=== PATIENT | female | born 1970 | race Asian ===

== ENCOUNTER 2018-10-22 23:12 | Inpatient (IN) | payer OTHER ==
[~2018-10-22] VITALS: Ht 154.9 cm; Wt 71.4 kg
[2018-10-23] MEDS ORDERED: morphine 2 MG INJ IV STA (00:39)
[2018-10-23] MEDS ORDERED: SODIUM CHLORIDE 0.9% 1L BAG IV* STA (00:39)
[2018-10-23] MEDS ORDERED: ONDANSETRON 4 MG INJ IV STA (00:39)
[2018-10-23] MEDS ORDERED: PIPER-TAZO 3.375 GM IV (PMX) 100 ML IVPB STA (00:39)
[2018-10-23] MEDS ORDERED: VANCOMYCIN 1 GM (PMX) 250 ML IVPB ONE (01:00)
[2018-10-23] MEDS ORDERED: morphine 2 MG INJ IV PRN (02:00)
[2018-10-23] MEDS ORDERED: HYDROCODONE/APAP (5/325) TAB PO PRN (02:00)
[2018-10-23] MEDS ORDERED: NACL 0.9% 3 ML SYG IV SCH (02:00)
[2018-10-23] MEDS ORDERED: VANCOMYCIN IV PER PHARMACY XX SCH (02:00)
--- NOTE | 2018-10-23 02:18 | HP ---
Date/Time of Note Date/Time of Note DATE: 10/23/18 TIME: 02:17 Assessment/Plan VTE Prophylaxis Pharmacological prophylaxis: other Lines/Catheters IV Catheter Type (from Nrs): Saline Lock Assessment/Plan Hospital Course Objective Physical exam General: Patient is laying in bed and answers questions appropriately Mentation: Patient is alert and oriented 4, Head: Normocephalic atraumatic Eyes: EOMI, pupils reactive to light Neck: Supple, nontender, midline Respiratory: Clear to auscultation bilaterally Cardiovascular: regular rate, no obvious murmurs Gastrointestinal: non-tender to palpation, bowel sounds heard. Neurological: Moves all extremities spontaneously Skin: Left breast surgical site with very mild to minimal erythema, drain site palpated, tender, draining fluid Assessment and plan Left breast cellulitis versus abscess -Broad-spectrum IV antibiotic -Dr. Ramon, has been called by the ED, however as of the time of dictation s till awaiting callback, if unable to contact, his office will need to be contacted so he can see the patient in the a.m. -Wound culture -Cultures pending LCIS versus DCIS -Reason for most recent surgery, follow-up with Dr. Ramon. Anemia -Mild, monitor Disposition -Continue IV antibiotics, await general surgeon recommendations. Result Diagram: 10/23/18 0020 10/23/18 0020 Results 24hrs Laboratory Tests Test 10/23/18 00:20 10/23/18 00:27 10/23/18 01:02 White Blood Count 8.9 Red Blood Count 3.54 L Hemoglobin 11.0 L Hematocrit 32.9 L Mean Corpuscular Volume 92.9 Mean Corpuscular Hemoglobin 31.1 Mean Corpuscular Hemoglobin Concent 33.4 Red Cell Distribution Width 11.8 Platelet Count 311 Mean Platelet Volume 9.6 Immature Granulocytes % 0.200 Neutrophils % 65.1 Lymphocytes % 17.9 Monocytes % 8.6 Eosinophils % 7.8 H Basophils % 0.4 Nucleated Red Blood Cells % 0.0 Immature Granulocytes # 0.020 Neutrophils # 5.8 Lymphocytes # 1.6 Monocytes # 0.8 Eosinophils # 0.7 H Basophils # 0.0 Nucleated Red Blood Cells # 0.0 Prothrombin Time 11.9 Prothrombin Time Ratio 0.9 INR International Normalized Ratio 0.87 Activated Partial Thromboplast Time 34.0 Urine Color YELLOW Urine Clarity CLEAR Urine pH 5.0 Urine Specific [place] 1.011 Urine Ketones TRACE A Urine Nitrite NEGATIVE Urine Bilirubin NEGATIVE Urine Urobilinogen NEGATIVE Urine Leukocyte Esterase TRACE A Urine Microscopic RBC 2 Urine Microscopic WBC 5 Urine Bacteria FEW A Urine Mucus FEW A Urine Hemoglobin 2+ H Urine Glucose NEGATIVE Urine Total Protein NEGATIVE Sodium Level 143 Potassium Level 3.6 Chloride Level 108 Carbon Dioxide Level 29 Anion Gap 6 Blood Urea Nitrogen 11 Creatinine 0.58 Est Glomerular Filtrat Rate mL/min > 60 Glucose Level 114 Calcium Level 9.5 Total Bilirubin 0.1 L Direct Bilirubin 0.00 Indirect Bilirubin 0.1 Aspartate Amino Transf (AST/SGOT) 29 Alanine Aminotransferase (ALT/SGPT) 27 Alkaline Phosphatase 60 Troponin I < 0.012 Total Protein 7.8 Albumin 4.1 Globulin 3.70 H Albumin/Globulin Ratio 1.10 POC Beta HCG, Qualitative NEGATIVE POC Venous Lactate 1.0 HPI/ROS Admit Date/Time Admit Date/Time Hx of Present Illness Patient is a [place] female who presents to [facility] with complaints of left breast drainage. Patient recently had a surgical procedure to remove a questionable breast mass on her left breast by Dr. Ramon on October 11. Patient subsequently had her drain removed approximately 3 days ago and since then has had left breast pain as well as drainage from site that has gotten worse. Patient's left breast begin to drain copiously tonight and subsequently patient came into the ED, patient complains of left breast site pain but otherwise feels within normal limits, patient denies chest pain, shortness of breath, abdominal pain, nausea, vomiting, leg pain. PMH/Family/Social Past Medical History Medications Current Medications Vancomycin HCl 250 ml @ 125 mls/hr ONCE ONCE IVPB ; Start 10/23/18 at 01:00; Stop 10/23/18 at 02:59 Piperacillin Sod/ Tazobactam Sod 100 ml @ 200 mls/hr Q6 IVPB ; Start 10/23/18 at 06:00 Vancomycin HCl (Vanco Iv Per Pharmacy) VANCOMYCIN PER PHARMACY PER PROTOCOL XX ; Start 10/23/18 at 02:00 IV Flush (NS 3 ml) 3 ml PER PROTOCOL IV ; Start 10/23/18 at 02:00 Acetaminophen (Tylenol Tab) 650 mg Q6H PRN PO .PAIN 1-3 OR TEMP; Start 10/23/18 at 02:00 Acetaminophen/ Hydrocodone Bitart ([place] (5/325)) 1 tab Q6H PRN PO .PAIN 4-6; Start 10/23/18 at 02:00 Morphine Sulfate (morphine) 2 mg Q4H PRN IV .PAIN 7-10; Start 10/23/18 at 02:00 Coded Allergies: No Known Drug Allergies (Unverified Allergy, Unknown, 10/11/18) Social History Smoking Status: Never smoker Exam/Review of Systems Vital Signs Vitals Vital Signs Date Temp Pulse Resp B/P (MAP) Pulse Ox O2 O2 Flow FiO2 Time Delivery Rate 10/23/18 98.8 86 13 113/78 100 Room Air 01:44 (90) ALEX SANTIAGO Oct 23, 2018 02:18
--- NOTE | 2018-10-23 02:27 | ERD ---
ER Documentation Chief Complaint Chief Complaint p L breast lupectomy 10/11/17; incision w pus today. +fever Fri HPI This is a very pleasant 48-year female status post left breast lumpectomy on 11 October. She had a J-tube pulled a few days ago. Since then she has noticed increased fullness erythema induration and pain in the left breast. Also has chills but no fever. No nausea no vomiting. No other current complaints ROS All systems reviewed and are negative except as per history of present illness. Allergies Allergies: Coded Allergies: No Known Drug Allergies (Unverified Allergy, Unknown, 10/11/18) PMhx/Soc History of Surgery: Yes (left breast lumpectomy, partial hysterectomy) Anesthesia Reaction: No Hx Neurological Disorder: No Hx Respiratory Disorders: No Hx Cardiac Disorders: No Hx Psychiatric Problems: No Hx Miscellaneous Medical Probl: No Hx Alcohol Use: Yes (socially) Hx Substance Use: No Hx Tobacco Use: No Smoking Status: Never smoker Physical Exam Vitals Vital Signs Date Temp Pulse Resp B/P (MAP) Pulse Ox O2 O2 Flow FiO2 Time Delivery Rate 10/23/18 98.8 86 13 113/78 100 Room Air 01:44 (90) 10/23/18 98.8 89 16 127/78 100 Room Air 00:42 (94) 10/23/18 98.8 80 16 151/72 100 Room Air 00:07 (98) 10/22/18 98.8 99 16 151/72 100 23:16 (98) Physical Exam Const: No acute distress Head: Atraumatic Eyes: Normal Conjunctiva ENT: Normal External Ears, Nose and Mouth. Neck: Full range of motion. No meningismus. Resp: Clear to auscultation bilaterally Cardio: Regular rate and rhythm, no murmurs Abd: Soft, non tender, non distended. Normal bowel sounds Skin: Left breast with 5 x 5 circumferential area of erythema induration. 1 cm central fluctuance noted on deep palpation. Back: No midline or flank tenderness Ext: No cyanosis, or edema Neur: Awake and alert Psych: Normal Mood and Affect Result Diagram: 10/23/18 0020 10/23/18 0020 Results 24 hrs Laboratory Tests Test 10/23/18 00:20 10/23/18 00:27 10/23/18 01:02 White Blood Count 8.9 10^3/ul Red Blood Count 3.54 10^6/ul Hemoglobin 11.0 g/dl Hematocrit 32.9 % Mean Corpuscular Volume 92.9 fl Mean Corpuscular Hemoglobin 31.1 pg Mean Corpuscular 33.4 g/dl Hemoglobin Concent Red Cell Distribution Width 11.8 % Platelet Count 311 10^3/UL Mean Platelet Volume 9.6 fl Immature Granulocytes % 0.200 % Neutrophils % 65.1 % Lymphocytes % 17.9 % Monocytes % 8.6 % Eosinophils % 7.8 % Basophils % 0.4 % Nucleated Red Blood Cells % 0.0 /100WBC Immature Granulocytes # 0.020 10^3/ul Neutrophils # 5.8 10^3/ul Lymphocytes # 1.6 10^3/ul Monocytes # 0.8 10^3/ul Eosinophils # 0.7 10^3/ul Basophils # 0.0 10^3/ul Nucleated Red Blood Cells # 0.0 10^3/ul Prothrombin Time 11.9 Sec Prothrombin Time Ratio 0.9 INR International 0.87 Normalized Ratio Activated Partial Thromboplast 34.0 Sec Time Urine Color YELLOW Urine Clarity CLEAR Urine pH 5.0 Urine Specific [place] 1.011 Urine Ketones TRACE mg/dL Urine Nitrite NEGATIVE mg/dL Urine Bilirubin NEGATIVE mg/dL Urine Urobilinogen NEGATIVE mg/dL Urine Leukocyte Esterase TRACE Cheryl/ul Urine Microscopic RBC 2 /HPF Urine Microscopic WBC 5 /HPF Urine Bacteria FEW /HPF Urine Mucus FEW /HPF Urine Hemoglobin 2+ mg/dL Urine Glucose NEGATIVE mg/dL Urine Total Protein NEGATIVE mg/dl Sodium Level 143 mmol/L Potassium Level 3.6 mmol/L Chloride Level 108 mmol/L Carbon Dioxide Level 29 mmol/L Anion Gap 6 Blood Urea Nitrogen 11 mg/dl Creatinine 0.58 mg/dl Est Glomerular Filtrat > 60 mL/min Rate mL/min Glucose Level 114 mg/dl Calcium Level 9.5 mg/dl Total Bilirubin 0.1 mg/dl Direct Bilirubin 0.00 mg/dl Indirect Bilirubin 0.1 mg/dl Aspartate Amino Transf (AST/SGOT) 29 IU/L Alanine 27 IU/L Aminotransferase (ALT/SGPT) Alkaline Phosphatase 60 IU/L Troponin I < 0.012 ng/ml Total Protein 7.8 g/dl Albumin 4.1 g/dl Globulin 3.70 g/dl Albumin/Globulin Ratio 1.10 POC Beta HCG, Qualitative NEGATIVE POC Venous Lactate 1.0 mmol/L Current Medications Medications Dose Sig/Herson Start Time Status Last (Trade) Ordered Route PRN Stop Time Admin Dose Reason Admin Sodium 2,140 ml BOLUS OVER 2 10/23/18 DC 10/23/18 Chloride HOURS STAT 00:39 01:05 (NS) IV* 10/23/18 00:43 Vancomycin 250 ml @ ONCE ONCE 10/23/18 HCl 125 mls/hr IVPB 01:00 10/23/18 02:59 Piperacillin 100 ml @ ONCE STAT 10/23/18 DC 10/23/18 Sod/ 200 mls/hr IVPB 00:39 01:05 Tazobactam 10/23/18 01:08 Sod Morphine 2 mg ONCE STAT 10/23/18 DC 10/23/18 Sulfate IV 00:39 01:05 (morphine) 10/23/18 00:43 Ondansetron 4 mg ONCE STAT 10/23/18 DC 10/23/18 HCl (Zofran IV 00:39 01:05 Inj) 10/23/18 00:43 Piperacillin 100 ml @ Q6 IVPB 10/23/18 Sod/ 200 mls/hr 06:00 Tazobactam Sod Vancomycin VANCOMYCIN PER 10/23/18 HCl (Vanco PER PHARMACY PROTOCOL XX 02:00 Iv Per Pharmacy) IV Flush 3 ml PER 10/23/18 (NS 3 ml) PROTOCOL IV 02:00 650 mg Q6H PRN 10/23/18 Acetaminophen PO .PAIN 1-3 02:00 (Tylenol OR TEMP Tab) 1 tab Q6H PRN 10/23/18 Acetaminophen PO .PAIN 4-6 02:00 / Hydrocodone Bitart ([place] (5/325)) Morphine 2 mg Q4H PRN 10/23/18 Sulfate IV .PAIN 02:00 (morphine) 7-10 Procedures/MDM Medical decision makin-year female with left breast cellulitis and possible early abscess. Start on antibiotics. Will be admitted to hospitalist. Dr. Chi was consulted as he did the original surgery. Departure Diagnosis: Primary Impression: Postoperative complication Surgical complication system/body Area: skin Surgical complication type: other Qualified Codes: L76.82 - Other postprocedural complications of skin and subcutaneous tissue Condition: Serious JUSTINA SANFORD Oct 23, 2018 02:27
[2018-10-23] MEDS ORDERED: MULTI PO (03:21)
[2018-10-23] MEDS ORDERED: ASCO500C7 PO (03:21)
[2018-10-23] MEDS ORDERED: CALC-134 PO (03:21)
[2018-10-23 05:00] VITALS: BP 113/69; PULSE 85; RESP 16
[2018-10-23] MEDS: PIPER-TAZO 3.375 GM IV (PMX) 100 ML IVPB SCH ×4 (06:03→23:40)
[2018-10-23] MEDS: VANCOMYCIN 1 GM 250 ML IVPB SCH ×2 (07:52→20:26)
[2018-10-23 08:00] VITALS: BP 95/62; PULSE 78; RESP 18
--- NOTE | 2018-10-23 12:06 | PN ---
Date/Time of Note Date/Time of Note DATE: 10/23/18 TIME: 12:05 Assessment/Plan VTE Prophylaxis SCD contraindicated: low risk/ambulating Pharmacological prophylaxis: NA/contraindicated Pharm contraindication: low risk/ambulating Lines/Catheters IV Catheter Type (from Nrsg): Saline Lock Assessment/Plan Hospital Course A/P 1. Left breast infection, possible seroma or abscess, stable cont antibiotics. reevaluate later this week. 2. Recent breast mass excision 2 weeks ago. MIREILLE removed 3 days ago. 3. Anemia S: 10/23 Events noted. The discharge was light yellow in color with occasional blood-tinged & sour smell noted O: Vss PE No pallor adenopathy Regular Clear Benign No edema Result Diagram: 10/23/1860510/23/18605 Results 24hrs Laboratory Tests Test 10/23/18 00:20 10/23/18 00:27 10/23/18 01:02 10/23/18 04:22 White Blood Count 8.9 Red Blood Count 3.54 L Hemoglobin 11.0 L Hematocrit 32.9 L Mean Corpuscular 92.9 Volume Mean Corpuscular 31.1 Hemoglobin Mean Corpuscular 33.4 Hemoglobin Concent Red Cell 11.8 Distribution Width Platelet Count 311 Mean Platelet Volume 9.6 Immature 0.200 Granulocytes % Neutrophils % 65.1 Lymphocytes % 17.9 Monocytes % 8.6 Eosinophils % 7.8 H Basophils % 0.4 Nucleated Red Blood 0.0 Cells % Immature 0.020 Granulocytes # Neutrophils # 5.8 Lymphocytes # 1.6 Monocytes # 0.8 Eosinophils # 0.7 H Basophils # 0.0 Nucleated Red Blood 0.0 Cells # Prothrombin Time 11.9 Prothrombin Time 0.9 Ratio INR International 0.87 Normalized Ratio Activated 34.0 Partial Thromboplast Time Urine Color YELLOW Urine Clarity CLEAR Urine pH 5.0 Urine Specific 1.011 [place] Urine Ketones TRACE A Urine Nitrite NEGATIVE Urine Bilirubin NEGATIVE Urine Urobilinogen NEGATIVE Urine Leukocyte TRACE A Esterase Urine Microscopic 2 RBC Urine Microscopic 5 WBC Urine Bacteria FEW A Urine Mucus FEW A Urine Hemoglobin 2+ H Urine Glucose NEGATIVE Urine Total Protein NEGATIVE Sodium Level 143 Potassium Level 3.6 Chloride Level 108 Carbon Dioxide Level 29 Anion Gap 6 Blood Urea Nitrogen 11 Creatinine 0.58 Est Glomerular > 60 Filtrat Rate mL/min Glucose Level 114 Calcium Level 9.5 Total Bilirubin 0.1 L Direct Bilirubin 0.00 Indirect Bilirubin 0.1 Aspartate Amino 29 Transf (AST/SGOT) Alanine 27 Aminotransferase (AL T/SGPT) Alkaline Phosphatase 60 Troponin I < 0.012 Total Protein 7.8 Albumin 4.1 Globulin 3.70 H Albumin/Globulin 1.10 Ratio POC Beta HCG, NEGATIVE Qualitative POC Venous Lactate 1.0 0.9 Test 10/23/18 06:06 White Blood Count 6.1 # Red Blood Count 3.08 L Hemoglobin 9.4 L Hematocrit 28.6 L Mean Corpuscular 92.9 Volume Mean Corpuscular 30.5 Hemoglobin Mean Corpuscular 32.9 Hemoglobin Concent Red Cell 11.9 Distribution Width Platelet Count 251 Mean Platelet Volume 9.0 Immature 0.300 Granulocytes % Neutrophils % 56.4 Lymphocytes % 26.0 Monocytes % 8.9 Eosinophils % 7.9 H Basophils % 0.5 Nucleated Red Blood 0.0 Cells % Immature 0.020 Granulocytes # Neutrophils # 3.4 Lymphocytes # 1.6 Monocytes # 0.5 Eosinophils # 0.5 Basophils # 0.0 Nucleated Red Blood 0.0 Cells # Sodium Level 145 H Potassium Level 4.0 Chloride Level 111 H Carbon Dioxide Level 28 Anion Gap 6 Blood Urea Nitrogen 7 Creatinine 0.56 Est Glomerular > 60 Filtrat Rate mL/min Glucose Level 101 Lactic Acid Level 0.7 Calcium Level 8.5 Magnesium Level 2.2 Total Bilirubin 0.2 Direct Bilirubin 0.00 Indirect Bilirubin 0.2 Aspartate Amino 21 Transf (AST/SGOT) Alanine 27 Aminotransferase (AL T/SGPT) Alkaline Phosphatase 44 Total Protein 6.1 # Albumin 3.2 L Globulin 2.90 Albumin/Globulin 1.10 Ratio Exam/Review of Systems Exam Vitals Vital Signs Date Temp Pulse Resp B/P (MAP) Pulse Ox O2 O2 Flow FiO2 Time Delivery Rate 10/23/18 98.2 78 18 95/62 (73) 99 Room Air 08:00 Results Results 24hrs Laboratory Tests Test 10/23/18 00:20 10/23/18 00:27 10/23/18 01:02 10/23/18 04:22 White Blood Count 8.9 Red Blood Count 3.54 L Hemoglobin 11.0 L Hematocrit 32.9 L Mean Corpuscular 92.9 Volume Mean Corpuscular 31.1 Hemoglobin Mean Corpuscular 33.4 Hemoglobin Concent Red Cell 11.8 Distribution Width Platelet Count 311 Mean Platelet Volume 9.6 Immature 0.200 Granulocytes % Neutrophils % 65.1 Lymphocytes % 17.9 Monocytes % 8.6 Eosinophils % 7.8 H Basophils % 0.4 Nucleated Red Blood 0.0 Cells % Immature 0.020 Granulocytes # Neutrophils # 5.8 Lymphocytes # 1.6 Monocytes # 0.8 Eosinophils # 0.7 H Basophils # 0.0 Nucleated Red Blood 0.0 Cells # Prothrombin Time 11.9 Prothrombin Time 0.9 Ratio INR International 0.87 Normalized Ratio Activated 34.0 Partial Thromboplast Time Urine Color YELLOW Urine Clarity CLEAR Urine pH 5.0 Urine Specific 1.011 [place] Urine Ketones TRACE A Urine Nitrite NEGATIVE Urine Bilirubin NEGATIVE Urine Urobilinogen NEGATIVE Urine Leukocyte TRACE A Esterase Urine Microscopic 2 RBC Urine Microscopic 5 WBC Urine Bacteria FEW A Urine Mucus FEW A Urine Hemoglobin 2+ H Urine Glucose NEGATIVE Urine Total Protein NEGATIVE Sodium Level 143 Potassium Level 3.6 Chloride Level 108 Carbon Dioxide Level 29 Anion Gap 6 Blood Urea Nitrogen 11 Creatinine 0.58 Est Glomerular > 60 Filtrat Rate mL/min Glucose Level 114 Calcium Level 9.5 Total Bilirubin 0.1 L Direct Bilirubin 0.00 Indirect Bilirubin 0.1 Aspartate Amino 29 Transf (AST/SGOT) Alanine 27 Aminotransferase (AL T/SGPT) Alkaline Phosphatase 60 Troponin I < 0.012 Total Protein 7.8 Albumin 4.1 Globulin 3.70 H Albumin/Globulin 1.10 Ratio POC Beta HCG, NEGATIVE Qualitative POC Venous Lactate 1.0 0.9 Test 10/23/18 06:06 White Blood Count 6.1 # Red Blood Count 3.08 L Hemoglobin 9.4 L Hematocrit 28.6 L Mean Corpuscular 92.9 Volume Mean Corpuscular 30.5 Hemoglobin Mean Corpuscular 32.9 Hemoglobin Concent Red Cell 11.9 Distribution Width Platelet Count 251 Mean Platelet Volume 9.0 Immature 0.300 Granulocytes % Neutrophils % 56.4 Lymphocytes % 26.0 Monocytes % 8.9 Eosinophils % 7.9 H Basophils % 0.5 Nucleated Red Blood 0.0 Cells % Immature 0.020 Granulocytes # Neutrophils # 3.4 Lymphocytes # 1.6 Monocytes # 0.5 Eosinophils # 0.5 Basophils # 0.0 Nucleated Red Blood 0.0 Cells # Sodium Level 145 H Potassium Level 4.0 Chloride Level 111 H Carbon Dioxide Level 28 Anion Gap 6 Blood Urea Nitrogen 7 Creatinine 0.56 Est Glomerular > 60 Filtrat Rate mL/min Glucose Level 101 Lactic Acid Level 0.7 Calcium Level 8.5 Magnesium Level 2.2 Total Bilirubin 0.2 Direct Bilirubin 0.00 Indirect Bilirubin 0.2 Aspartate Amino 21 Transf (AST/SGOT) Alanine 27 Aminotransferase (AL T/SGPT) Alkaline Phosphatase 44 Total Protein 6.1 # Albumin 3.2 L Globulin 2.90 Albumin/Globulin 1.10 Ratio Medications Medication Current Medications Piperacillin Sod/ Tazobactam Sod 100 ml @ 200 mls/hr Q6 IVPB Last administered on 10/23/18at 06:03; Admin Dose 200 MLS/HR; Start 10/23/18 at 06:00 Vancomycin HCl (Vanco Iv Per Pharmacy) VANCOMYCIN PER PHARMACY PER PROTOCOL XX ; Start 10/23/18 at 02:00 IV Flush (NS 3 ml) 3 ml PER PROTOCOL IV ; Start 10/23/18 at 02:00 Acetaminophen (Tylenol Tab) 650 mg Q6H PRN PO .PAIN 1-3 OR TEMP; Start 10/23/18 at 02:00 Acetaminophen/ Hydrocodone Bitart ([place] (5/325)) 1 tab Q6H PRN PO .PAIN 4-6; Start 10/23/18 at 02:00 Morphine Sulfate (morphine) 2 mg Q4H PRN IV .PAIN 7-10; Start 10/23/18 at 02:00 Vancomycin HCl 250 ml @ 125 mls/hr Q12H IVPB Last administered on 10/23/18at 07:52; Admin Dose 125 MLS/HR; Start 10/23/18 at 08:00 BILL HADDAD MD Oct 23, 2018 12:06
[2018-10-23 15:54] VITALS: BP 111/64; PULSE 85; RESP 18
[2018-10-23] MEDS ORDERED: GUAIFENESIN/DM 5ML CUP PO PRN (16:00)
--- NOTE | 2018-10-23 16:51 | CONS ---
DATE OF ADMISSION: 10/23/2018 DATE OF CONSULTATION: 10/23/2018 TYPE OF CONSULTATION: Surgical. REQUESTING PHYSICIAN: Alex Adrian MD REASON FOR CONSULTATION: Evaluate the left breast for possible abscess and cellulitis. Thank you, Dr. Adrian and Dr. Goins for consultation. 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 The patient was discharged without any complication home with the MIREILLE drain and apparently on Monday10/19/2018, the MIREILLE drain was removed in the office. The patient states that since then she has been feeling pain here and there in the muscles and also increase in the size of the breast a little bit and continued drainage from the site of the removal of the drain and some chills, no fever and has noticed slight redness of the color at the site of the operation, so she comes to the emergency room last night for evaluation. At that time, she was found to have temperature 99.8 and examination of the emergency room physician, there was cellulitis, some induration and some tenderness of the left breast, so the patient with the impression of cellulitis and possible abscess formation was admitted and was started on antibiotics, Zosyn and vancomycin. Culture was taken from discharge fluid. Now today, I see the patient in consultation. Actually the consultation is for Dr. Stephenson and I am covering Dr. Stephenson' service, so I see the patient. PAST MEDICAL HISTORY: Unremarkable. REVIEW OF SYSTEMS: Unremarkable. ALLERGIES: NOT KNOWN. MEDICATIONS: Please refer to reconciliation list. PHYSICAL EXAMINATION: GENERAL: The patient is awake, alert, oriented x3. VITAL SIGNS: Today, temperature maximum 98.8, heart rate 82, respirations 16, blood pressure 115/75, saturation 96% to 100% on room air. HEART: Regular. LUNGS: Clear. ABDOMEN: Soft. CHEST AND BREASTS: Right breast is normal. Left breast is slightly swollen. Scar of the recent operation is nicely healed. There is some slight amount of drainage of fluid yellowish from the site of removal of the Kapil-Pantoja drain on the lateral side of the left breast. Also around the scar area, there is a little bit of erythema and some tenderness. It is not extensive; therefore one can say mild degree of cellulitis and induration of subcutaneous tissue due to probably infection involving the site of the cavity of the recent operation. LABORATORY DATA: At the time of admission last night, WBC was 8900 with 65% neutrophils which is normal range, hemoglobin 11, hematocrit 32.9. Today morning at 7:00, WBC 6100, hemoglobin dropped slightly to 9.4, hematocrit 28.6. Later on, ESR is 50 which is elevated. Chemistry is almost within normal limits. The C-reactive protein is 3.7 which is elevated. DIAGNOSTIC DATA: Chest x-ray: No evidence for active cardiopulmonary disease. Ultrasound which was done today was read as follows: Small simple appearing fluid collection at 1 o'clock and heterogenous probable collection at 2 to 3 o'clock position which could represent a more complex collection. Breast masses are not excluded with this examination and this was not intended to be a complete breast ultrasound or screening examination for cancer. SUGGESTION AND PLAN: I agree with antibiotic at this time, so continue Zosyn and vancomycin, pending the culture result then make a decision for changing the antibiotic as needed. Also, continue for a couple of days. If all the symptoms disappear, we will probably continue IV until end of the week and the patient may be discharged with oral antibiotic. If the sign and symptom does not improve that much, then maybe on or Monday we will proceed with incision and drainage of the cavity and irrigation and washing of the cavity of recent partial mastectomy. I discussed the case with Dr. Stephenson. We will take a look at the patient tomorrow together and then further decision will be made. Dictated By: TOÑO LONG MD PS/NTS Conf#: [id number] DID#: [id number] CC: ALEX ADRIAN MD; CHOCO STEPHENSON MD;*EndCC* MTDD
[2018-10-23 19:55] VITALS: BP 110/65; PULSE 88; RESP 18
[2018-10-23] MEDS: LACTOBACILLUS RHAMNOSUS CAP PO SCH (20:26)
[2018-10-24] MEDS: HYDROCODONE/APAP (10/325) TAB PO PRN ×2 (04:35→23:23)
[2018-10-24] MEDS: PIPER-TAZO 3.375 GM IV (PMX) 100 ML IVPB SCH ×4 (05:43→23:23)
[2018-10-24] MEDS: VANCOMYCIN 1 GM 250 ML IVPB SCH (08:46)
[2018-10-24] MEDS: LACTOBACILLUS RHAMNOSUS CAP PO SCH ×2 (08:46→20:24)
[2018-10-24] MEDS: ENOXAPARIN 40 MG/0.4 ML SYG SC SCH (08:49)
[2018-10-24 08:52] VITALS: BP 104/67; PULSE 93; RESP 18
[2018-10-24] MEDS: ACETAMINOPHEN 325 MG TAB PO PRN ×2 (11:34→17:44)
[2018-10-24] MEDS: VANCOMYCIN HCL 1.25 GM in SOD CHLORIDE 0.9% 250 ML IVPB SCH (18:50)
[2018-10-24 20:30] VITALS: BP 118/59; PULSE 76; RESP 18
[2018-10-24] MEDS ORDERED: morphine LIQ (10 MG/5 ML) CUP PO PRN (23:00)
[2018-10-25 02:51] VITALS: BP 98/62; PULSE 65; RESP 19
[2018-10-25] MEDS: PIPER-TAZO 3.375 GM IV (PMX) 100 ML IVPB SCH ×3 (05:03→17:11)
[2018-10-25] MEDS: VANCOMYCIN HCL 1.25 GM in SOD CHLORIDE 0.9% 250 ML IVPB SCH ×2 (05:35→18:01)
[2018-10-25 07:26] VITALS: BP 107/67; PULSE 74; RESP 18
--- NOTE | 2018-10-25 07:32 | PN ---
DATE: 10/24/2018 SUBJECTIVE: Feels better than yesterday and the day before. No nausea, no vomiting, no fever, no chills. OBJECTIVE: VITAL SIGNS: Temperature today 98.8, heart rate fluctuating between 78 and 90, respirations 15, 13 and 16, blood pressure 115/78, saturation 100%. LABORATORY DATA: WBC today is 4100 with 41% neutrophils. Hemoglobin low but stable at 9.5 x 28.9. Chemistry: Sodium, potassium, BUN, creatinine normal. Thyroid is normal. Albumin 3.2 and total protein 5.9. wound culture which was from the drainage from the site of the exit of J.P.Draine has grown Staf aureous _2+. Further specification is pending. Blood culture negative so far. HEART: Regular. LUNGS: Clear. BREASTS: Erythema and cellulitis of the left breast is about 20% to 30% decreased comparing to yesterday. Still there is mild tenderness around the scar of the previous operation from the site of the removal of the drain. Still wound is draining most probably whether it is in the cavity of the mastectomy is getting drainage through this tract that was created by placement of Kapil- Pantoja drain. PLAN: Discuss with Dr. Stephenson. Will continue antibiotics and will observe the patient and will evaluate the patient. If by Monday is much, much better then will continue, otherwise most probably is not, we are going to proceed with opening the wound and irrigating the wound and put a Mason drain and leaving it in the wound cavity. Dictated By: TOÑO LONG MD PS/NTS Conf#: [id number] DID#: [id number] CC: ALEX SANTIAGO MD;*EndCC* MTDD
[2018-10-25] MEDS: LACTOBACILLUS RHAMNOSUS CAP PO SCH ×2 (08:41→21:45)
[2018-10-25] MEDS: HYDROCODONE/APAP (10/325) TAB PO PRN ×2 (08:42→17:16)
[2018-10-25] MEDS: ENOXAPARIN 40 MG/0.4 ML SYG SC SCH (08:46)
--- NOTE | 2018-10-25 12:39 | PN ---
DATE: 10/25/2018 SUBJECTIVE: States that feels much better than 4 previous days. OBJECTIVE: GENERAL: Awake, alert, and oriented. VITAL SIGNS: Temperature maximum today so far is 97.8, heart rate 74, respiration 18, blood pressure 107/67, saturation 97% on room air. LABORATORY DATA: WBC 4500 with 37.6% neutrophils, normal differential, hemoglobin 9.6, hematocrit 29.7. HEART: Regular. LUNGS: Clear. ABDOMEN: Soft. CHEST: Left breast is much decreased of erythema and tenderness is minimal. Drainage from the site of the previous MIREILLE drain has decreased and the color has changed to yellow. It was slightly brownish the other days. The wound culture has been reported as follows, 2+ staph aureus. Sensitivity also is available the patient is getting vancomycin, which shows that it is sensitive to vancomycin as well. So antibiotic adjustment per internal medicine service. PLAN: Will continue antibiotic IV and we recommended continuing the weekend and the patient be discharged with oral medication and antibiotics on Monday or Monday. Dictated By: TOÑO TOLLIVER/BOUBACAR Conf#: [id number] DID#: [id number] MTDD
[2018-10-25 14:55] VITALS: BP 100/51; PULSE 76; RESP 18
[2018-10-25 20:26] VITALS: BP 111/72; PULSE 79; RESP 18
[2018-10-25] MEDS: ACETAMINOPHEN 325 MG TAB PO PRN (21:51)
[2018-10-25] MEDS ORDERED: DIPHENHYDRAMINE 25 MG CAP PO PRN (23:00)
[2018-10-25] MEDS ORDERED: DIPHENHYDRAMINE 1%/ZINC 28.3 GM CR TOP PRN (23:00)
--- NOTE | 2018-10-25 23:32 | PN ---
Date/Time of Note Date/Time of Note DATE: 10/25/18 TIME: 23:31 Assessment/Plan VTE Prophylaxis Risk score (from Ns)>0 risk: 2 SCD applied (from Ns): No SCD contraindicated: low risk/ambulating Pharmacological prophylaxis: LMWH Lines/Catheters IV Catheter Type (from [facility]): Peripheral IV Assessment/Plan Hospital Course A/P 1. Left breast infection, possible seroma or abscess, stable cont antibiotics. reevaluate later this week. 2. Recent breast mass excision 2 weeks ago. MIREILLE removed 3 days ago. 3. Anemia S: 10/23 Events noted. The discharge was light yellow in color with occasional blood-tinged & sour smell noted 10/24: no events 10/25: itching, on zosyn; nkda O: Vss PE No pallor Regular Clear Benign No edema Result Diagram: 10/25/18 0447 10/24/18 0654 Results 24hrs Laboratory Tests Test 10/25/18 04:47 White Blood Count 4.5 L Red Blood Count 3.17 L Hemoglobin 9.6 L Hematocrit 29.4 L Mean Corpuscular Volume 92.7 Mean Corpuscular Hemoglobin 30.3 Mean Corpuscular Hemoglobin Concent 32.7 Red Cell Distribution Width 11.9 Platelet Count 277 Mean Platelet Volume 9.2 Immature Granulocytes % 0.200 Neutrophils % 37.6 L Lymphocytes % 41.1 Monocytes % 8.2 Eosinophils % 12.2 H Basophils % 0.7 Nucleated Red Blood Cells % 0.0 Immature Granulocytes # 0.010 Neutrophils # 1.7 Lymphocytes # 1.9 Monocytes # 0.4 Eosinophils # 0.6 H Basophils # 0.0 Nucleated Red Blood Cells # 0.0 Exam/Review of Systems Exam Vitals Vital Signs Date Temp Pulse Resp B/P (MAP) Pulse Ox O2 O2 Flow FiO2 Time Delivery Rate 10/25/18 98.2 79 18 111/72 97 20:26 (85) 10/25/18 Room Air 14:55 Intake and Output 10/24/18 10/24/18 10/25/18 1515:00 23:00 07:00 IntakeIntake Total 200 ml 1400 ml 400 ml BalanceBalance 200 ml 1400 ml 400 ml Results Results 24hrs Laboratory Tests Test 10/25/18 04:47 White Blood Count 4.5 L Red Blood Count 3.17 L Hemoglobin 9.6 L Hematocrit 29.4 L Mean Corpuscular Volume 92.7 Mean Corpuscular Hemoglobin 30.3 Mean Corpuscular Hemoglobin Concent 32.7 Red Cell Distribution Width 11.9 Platelet Count 277 Mean Platelet Volume 9.2 Immature Granulocytes % 0.200 Neutrophils % 37.6 L Lymphocytes % 41.1 Monocytes % 8.2 Eosinophils % 12.2 H Basophils % 0.7 Nucleated Red Blood Cells % 0.0 Immature Granulocytes # 0.010 Neutrophils # 1.7 Lymphocytes # 1.9 Monocytes # 0.4 Eosinophils # 0.6 H Basophils # 0.0 Nucleated Red Blood Cells # 0.0 Medications Medication Current Medications Piperacillin Sod/ Tazobactam Sod 100 ml @ 200 mls/hr Q6 IVPB Last administered on 10/25/18 17:11; Admin Dose 200 MLS/HR; Start 10/23/18 at 06:00 Vancomycin HCl (Vanco Iv Per Pharmacy) VANCOMYCIN PER PHARMACY PER PROTOCOL XX ; Start 10/23/18 at 02:00 IV Flush (NS 3 ml) 3 ml PER PROTOCOL IV ; Start 10/23/18 at 02:00 Acetaminophen (Tylenol Tab) 650 mg Q6H PRN PO .PAIN 1-3 OR TEMP Last administered on 10/25/18 21:51; Admin Dose 650 MG; Start 10/23/18 at 02:00 Acetaminophen/ Hydrocodone Bitart ([place] (10/325)) 1 tab Q4H PRN PO MODERATE PAIN LEVEL 4-6 Last administered on 10/25/18 17:16; Admin Dose 1 TAB; Start 10/23/18 at 12:30 Lactobacillus Acidophilus/ Rhamnosus (Culturelle) 1 cap BID PO Last administered on 10/25/18 21:45; Admin Dose 1 CAP; Start 10/23/18 at 21:00 Guaifenesin/ Dextromethorphan (Robitussin Dm Liquid Cup) 10 ml Q4H PRN PO CO UGH; Start 10/23/18 at 16:00 Enoxaparin Sodium (Lovenox) 40 mg DAILY SC Last administered on 10/25/18 08:46; Admin Dose 40 MG; Start 10/24/18 at 09:00 Vancomycin HCl 1.25 gm/Sodium Chloride 250 ml @ 83.333 mls/ hr Q12H IVPB Last administered on 2/14/19at 18:01; Admin Dose 83.333 MLS/HR; Start 10/24/18 at 17:00 Morphine Sulfate (morphine) 6 mg Q4H PRN PO SEVERE PAIN LEVEL 7-10 Last administered on 10/25/18at 18:04; Admin Dose 6 MG; Start 10/24/18 at 23:00 Miscellaneous Information (*Rx Drug Level Order Reminder*) VANCO TR AT 0400 ONCE ONCE XX ; Start 10/26/18 at 04:00; Stop 10/26/18 at 04:01 Diphenhydramine HCl (Benadryl) 25 mg Q6H PRN PO ITCHING; Start 10/25/18 at 23:00 Diphenhydramine/ Zinc Oxide (Benadryl 1% Cr) 1 applic Q6H PRN TOP itching site; Start 10/25/18 at 23:00 BILL HADDAD MD Oct 25, 2018 23:32
[2018-10-26] MEDS: PIPER-TAZO 3.375 GM IV (PMX) 100 ML IVPB SCH ×3 (00:15→12:10)
[2018-10-26 00:25] VITALS: BP 108/63; PULSE 80; RESP 18
[2018-10-26] MEDS: ACETAMINOPHEN 325 MG TAB PO PRN (05:27)
[2018-10-26] MEDS: VANCOMYCIN HCL 1.25 GM in SOD CHLORIDE 0.9% 250 ML IVPB SCH (06:36)
[2018-10-26 07:32] VITALS: BP 93/58; PULSE 84; RESP 18
[2018-10-26] MEDS: ENOXAPARIN 40 MG/0.4 ML SYG SC SCH (09:07)
[2018-10-26] MEDS: LACTOBACILLUS RHAMNOSUS CAP PO SCH ×2 (09:07→21:11)
--- NOTE | 2018-10-26 13:26 | PN ---
Date/Time of Note Date/Time of Note DATE: 10/26/18 TIME: 13:25 Assessment/Plan VTE Prophylaxis Risk score (from Ns)>0 risk: 1 SCD applied (from Ns): No SCD contraindicated: low risk/ambulating Pharmacological prophylaxis: LMWH Lines/Catheters IV Catheter Type (from Nrs): Peripheral IV Assessment/Plan Hospital Course A/P 1. Left breast infection, possible seroma or abscess, stable cont antibiotics. reevaluate later this week. ID consult. 2. Recent breast mass excision 2 weeks ago. MIREILLE removed 3 days ago. 3. Anemia S: 10/23 Events noted. The discharge was light yellow in color with occasional blood-tinged & sour smell noted 10/24: no events 10/25: itching, on zosyn; nkda 10/26: no events. less discharge, no fever O: Vss PE No pallor Regular Clear Benign No edema Result Diagram: 10/25/18 0447 10/24/18 0654 Results 24hrs Laboratory Tests Test 10/26/18 04:24 Vancomycin Level Trough 13.7 Exam/Review of Systems Exam Vitals Vital Signs Date Temp Pulse Resp B/P (MAP) Pulse Ox O2 O2 Flow FiO2 Time Delivery Rate 10/26/18 98.1 84 18 93/58 (70) 99 Room Air 07:32 Intake and Output 10/25/18 10/25/18 10/26/18 1414:59 22:59 06:59 IntakeIntake Total 910 ml 590 ml 400 ml OutputOutput Total 200 ml BalanceBalance 710 ml 590 ml 400 ml Results Results 24hrs Laboratory Tests Test 10/26/18 04:24 Vancomycin Level Trough 13.7 Medications Medication Current Medications Piperacillin Sod/ Tazobactam Sod 100 ml @ 200 mls/hr Q6 IVPB Last administered on 10/26/18at 12:10; Admin Dose 200 MLS/HR; Start 10/23/18 at 06:00 Vancomycin HCl (Vanco Iv Per Pharmacy) VANCOMYCIN PER PHARMACY PER PROTOCOL XX ; Start 10/23/18 at 02:00 IV Flush (NS 3 ml) 3 ml PER PROTOCOL IV ; Start 10/23/18 at 02:00 Acetaminophen (Tylenol Tab) 650 mg Q6H PRN PO .PAIN 1-3 OR TEMP Last administered on 10/26/18at 05:27; Admin Dose 650 MG; Start 10/23/18 at 02:00 Acetaminophen/ Hydrocodone Bitart ([place] (10/325)) 1 tab Q4H PRN PO MODERATE PAIN LEVEL 4-6 Last administered on 10/25/18 17:16; Admin Dose 1 TAB; Start 10/23/18 at 12:30 Lactobacillus Acidophilus/ Rhamnosus (Culturelle) 1 cap BID PO Last administered on 10/26/18 09:07; Admin Dose 1 CAP; Start 10/23/18 at 21:00 Guaifenesin/ Dextromethorphan (Robitussin Dm Liquid Cup) 10 ml Q4H PRN PO C OUGH; Start 10/23/18 at 16:00 Enoxaparin Sodium (Lovenox) 40 mg DAILY SC Last administered on 10/26/18 09:07; Admin Dose 40 MG; Start 10/24/18 at 09:00 Vancomycin HCl 1.25 gm/Sodium Chloride 250 ml @ 83.333 mls/ hr Q12H IVPB Last administered on 10/26/18 06:36; Admin Dose 83.333 MLS/HR; Start 10/24/18 at 17:00 Morphine Sulfate (morphine) 6 mg Q4H PRN PO SEVERE PAIN LEVEL 7-10 Last administered on 10/25/18 18:04; Admin Dose 6 MG; Start 10/24/18 at 23:00 Diphenhydramine HCl (Benadryl) 25 mg Q6H PRN PO ITCHING Last administered on 10/26/18 00:15; Admin Dose 25 MG; Start 10/25/18 at 23:00 Diphenhydramine/ Zinc Oxide (Benadryl 1% Cr) 1 applic Q6H PRN TOP itching site Last administered on 10/26/18 00:15; Admin Dose 1 APPLIC; Start 10/25/18 at 23:00 BILL HADDAD MD Oct 26, 2018 13:26
[2018-10-26] MEDS ORDERED: BISACODYL (EC) 5 MG TAB PO PRN (13:30)
--- NOTE | 2018-10-26 14:00 | PN ---
DATE: 10/26/2018 SUBJECTIVE: No complaint . OBJECTIVE: VITAL SIGNS: Temperature maximum 98.5, heart rate 80, respiration 18, blood pressure 108/63, saturation 97%. HEART: Regular. LUNGS: Clear. ABDOMEN: Soft. BREASTS: Cellulitis 90% resolved and induration is quite improved, per nurse drainage from the site of Kapil-Pantoja drain which was draining more before, now is very small amount. A light yellowish in color. The wound cultures as was mentioned, has grown Staph aureus. The patient is on antibiotic IV. ASSESSMENT AND PLAN: The patient with cellulitis and deep subcutaneous tissue infection, post partial mastectomy for atypical ductal hyperplasia. The patient developed infection clinically after removal of the Kapil-Pantoja drain. Patient has been here since 10/23/2018, which is by now 4 days. The patient has been on IV antibiotics. She has responded to IV antibiotic quite well. PLAN: Continue IV antibiotic 1 more day. The patient may be discharged from surgical point of view tomorrow, of course on oral antibiotics to be continued for at least 1 week at home. Patient to call Dr. Stephenson' office and make appointment for followup next Monday. Dictated By: TOÑO LONG MD PS/NTS Conf#: [id number] DID#: [id number] CC: ALEX SANTIAGO MD;*EndCC* MTDD
--- NOTE | 2018-10-26 14:08 | QN ---
Documentation Comment ID consult requested by Hospitalist. Dr. Elizabeth will see this patient shortly. Thank you! KYLAH FAIR NP Oct 26, 2018 14:08
[2018-10-26 15:13] VITALS: BP 105/59; PULSE 92; RESP 18
--- NOTE | 2018-10-26 15:37 | CONS ---
Assessment/Plan Assessment/Plan Hospital Course (Demo Recall) 1. MSSA breast cellulitis and abscess clinically improving 2. needle located partial mastectomy on the left side for atypical ductal hyperplasia on 10/11/2018. R: Cefazolin while in hospital d/c with po keflex 500mg po qid x 7d and then outpatient ID f/u I gave patient my card. Consultation Date/Type/Reason Admit Date/Time Date of Consultation: Oct 26, 2018 Type of Consult ID Reason for Consultation ABX RECS Requesting Provider: BILL HADDAD MD Date/Time of Note DATE: 10/26/18 TIME: 15:30 Hx of Present Illness 48 YO female with pmh of needle located partial mastectomy on the left side for atypical ductal hyperplasia on 10/11/2018. She was admitted on 10.23.18 for cellulitis and discharge. Breast US revealed Small simple appearing fluid collection at 1 o'clock and a larger more heterogeneous probable collection at the 2-3 o'clock position which could represent a more complex collection. She was placed on Vanco/Zosyn. Wound cx was MSSA. She is clinically improved. Constitutional: no complaints, improved Eyes: no complaints ENT: no complaints Respiratory: no complaints Cardiovascular: no complaints Gastrointestinal: no complaints Genitourinary: no complaints Musculoskeletal: no complaints Skin: no complaints Neurologic: no complaints Endocrine: no complaints Past Medical History Home Meds Reported Medications Multivitamins* (Theragran*) 1 Tab Tab, 1 TAB PO DAILY, TAB 10/23/18 Calcium Carbonate/Vitamin D3 (Calcium + Vitamin D Tablet) 1 Each Tablet, 1 EACH PO DAILY, TAB 10/23/18 Ascorbic Acid* (Vitamin C*) 500 Mg Capsule.sa, 500 MG PO DAILY, CAP 10/23/18 Medications Current Medications IV Flush (NS 3 ml) 3 ml PER PROTOCOL IV ; Start 10/23/18 at 02:00 Acetaminophen (Tylenol Tab) 650 mg Q6H PRN PO .PAIN 1-3 OR TEMP Last administered on 10/26/18at 05:27; Admin Dose 650 MG; Start 10/23/18 at 02:00 Acetaminophen/ Hydrocodone Bitart ([place] (10/325)) 1 tab Q4H PRN PO MODERATE PAIN LEVEL 4-6 Last administered on 10/25/18at 17:16; Admin Dose 1 TAB; Start 10/23/18 at 12:30 Lactobacillus Acidophilus/ Rhamnosus (Culturelle) 1 cap BID PO Last administered on 10/26/18at 09:07; Admin Dose 1 CAP; Start 10/23/18 at 21:00 Guaifenesin/ Dextromethorphan (Robitussin Dm Liquid Cup) 10 ml Q4H PRN PO COUGH; Start 10/23/18 at 16:00 Enoxaparin Sodium (Lovenox) 40 mg DAILY SC Last administered on 10/26/18at 09:07; Admin Dose 40 MG; Start 10/24/18 at 09:00 Morphine Sulfate (morphine) 6 mg Q4H PRN PO SEVERE PAIN LEVEL 7-10 Last administered on 10/25/18at 18:04; Admin Dose 6 MG; Start 10/24/18 at 23:00 Diphenhydramine HCl (Benadryl) 25 mg Q6H PRN PO ITCHING Last administered on 10/26/18at 00:15; Admin Dose 25 MG; Start 10/25/18 at 23:00 Diphenhydramine/ Zinc Oxide (Benadryl 1% Cr) 1 applic Q6H PRN TOP itching site Last administered on 10/26/18at 00:15; Admin Dose 1 APPLIC; Start 10/25/18 at 23:00 Bisacodyl (Dulcolax) 10 mg DAILY PRN PO CONSTIPATION; Start 10/26/18 at 13:30 Cefazolin Sodium 50 ml @ 100 mls/hr Q8 IVPB ; Start 10/26/18 at 22:00 Allergies: Coded Allergies: No Known Drug Allergies (Unverified Allergy, Unknown, 10/23/18) Social History Smoking Status: Never smoker Exam/Review of Systems Exam Vitals Vital Signs Date Temp Pulse Resp B/P (MAP) Pulse Ox O2 O2 Flow FiO2 Time Delivery Rate 10/26/18 98.2 92 18 105/59 96 Room Air 15:13 (74) Intake and Output 10/25/18 10/25/18 10/26/18 1515:00 23:00 07:00 IntakeIntake Total 910 ml 590 ml 400 ml OutputOutput Total 200 ml BalanceBalance 710 ml 590 ml 400 ml Constitutional: alert, oriented, well developed Psych: no complaints, nl mood/affect Head: normocephalic, atraumatic Eyes: nl conjunctiva, EOMI, nl lids, nl sclera, PERRL ENMT: nl external ears & nose, nl lips & teeth, nl nasal mucosa & septum Neck: supple, non-tender Respiratory: clear to auscultation, normal air movement Cardiovascular: regular rate and rhythm, nl pulses Gastrointestinal: soft, nl liver, spleen, non-tender Musculoskeletal: nl extremities to inspection, nl gait and stance Neurological: DISK SHARPENER II-XII intact, nl mental status, nl speech, nl strength Skin: other (wound on left breast with minnimal erythema, no discharge apparent now) Results Result Diagram: 10/25/18 0447 10/24/18 0654 Results 24hrs Laboratory Tests Test 10/26/18 04:24 Vancomycin Level Trough 13.7 Medications Medication Current Medications IV Flush (NS 3 ml) 3 ml PER PROTOCOL IV ; Start 10/23/18 at 02:00 Acetaminophen (Tylenol Tab) 650 mg Q6H PRN PO .PAIN 1-3 OR TEMP Last admini stered on 10/26/18at 05:27; Admin Dose 650 MG; Start 10/23/18 at 02:00 Acetaminophen/ Hydrocodone Bitart ([place] (10/325)) 1 tab Q4H PRN PO MODERATE PAIN LEVEL 4-6 Last administered on 10/25/18at 17:16; Admin Dose 1 TAB; Start 10/23/18 at 12:30 Lactobacillus Acidophilus/ Rhamnosus (Culturelle) 1 cap BID PO Last administered on 10/26/18at 09:07; Admin Dose 1 CAP; Start 10/23/18 at 21:00 Guaifenesin/ Dextromethorphan (Robitussin Dm Liquid Cup) 10 ml Q4H PRN PO COUGH; Start 10/23/18 at 16:00 Enoxaparin Sodium (Lovenox) 40 mg DAILY SC Last administered on 10/26/18at 09:07; Admin Dose 40 MG; Start 10/24/18 at 09:00 Morphine Sulfate (morphine) 6 mg Q4H PRN PO SEVERE PAIN LEVEL 7-10 Last administered on 10/25/18at 18:04; Admin Dose 6 MG; Start 10/24/18 at 23:00 Diphenhydramine HCl (Benadryl) 25 mg Q6H PRN PO ITCHING Last administered on 10/26/18at 00:15; Admin Dose 25 MG; Start 10/25/18 at 23:00 Diphenhydramine/ Zinc Oxide (Benadryl 1% Cr) 1 applic Q6H PRN TOP itching site Last administered on 10/26/18at 00:15; Admin Dose 1 APPLIC; Start 10/25/18 at 23:00 Bisacodyl (Dulcolax) 10 mg DAILY PRN PO CONSTIPATION; Start 10/26/18 at 13:30 Cefazolin Sodium 50 ml @ 100 mls/hr Q8 IVPB ; Start 10/26/18 at 22:00 JENNIFER BOONE MD Oct 26, 2018 15:37
[2018-10-26 19:10] VITALS: BP 112/67; PULSE 83; RESP 18
[2018-10-26] MEDS: CEFAZOLIN 1 GM/50 ML (PMX) 50 ML IVPB SCH (21:11)
[2018-10-27 02:00] VITALS: BP 118/62; PULSE 78; RESP 18
[2018-10-27] MEDS: CEFAZOLIN 1 GM/50 ML (PMX) 50 ML IVPB SCH ×2 (06:16→14:19)
[2018-10-27 08:14] VITALS: BP 111/73; PULSE 82; RESP 18
[2018-10-27] MEDS: LACTOBACILLUS RHAMNOSUS CAP PO SCH (08:20)
[2018-10-27] MEDS: ENOXAPARIN 40 MG/0.4 ML SYG SC SCH (08:22)
--- NOTE | 2018-10-27 15:23 | DS ---
Date/Time of Note Date/Time of Note DATE: 10/27/18 TIME: 15:20 Discharge Summary Admission/Discharge Info Admit Date/Time Oct 23, 2018 at 01:55 Discharge Date/Time Consults Seema/ Mehnaz Elizabeth Procedures Left breast ultrasound CLINICAL INDICATION: Sepsis and possible breast abscess TECHNIQUE: Scanning of the soft tissues of the left breast was performed in emergency setting by the operations developer histopathologist with brody scale and color Doppler ultrasound using a linear transducer. The study was not performed in a breast center and was done without the benefit of real time physician scanning. COMPARISON: None FINDINGS: By report, the area of surgery was from the 1-3 o'clock position. At 1 o'clock, a small fluid density structure was seen measuring 1 x 1 x 1.4 cm which could represent a cyst or a small postoperative seroma. A larger slightly more ill- defined heterogeneous hypoechoic area was seen at 2 o'clock to 3 o'clock measuring 1.8 x 1.5 x 2.4 cm. This could represent a more complex collection. Breast masses are not excluded with this examination. IMPRESSION: Small simple appearing fluid collection at 1 o'clock and a larger more heterogeneous probable collection at the 2-3 o'clock position which could represent a more complex collection. Breast masses are not excluded with this examination and this was not intended to be a complete breast ultrasound or a screening examination for cancer. CXR- no active Hx of Present Illness 48yr F w concern for breast infection Hospital Course A/P 1. Left breast infection, possible seroma or abscess, stable dc home on 1 wk of keflex to f/u w Surgery & ID. 2. Recent breast mass excision 2 weeks ago. MIREILLE removed 3 days ago. 3. Anemia S: 10/23 Events noted. The discharge was light yellow in color with occasional blood-tinged & sour smell noted 10/24: no events 10/25: itching, on zosyn; nkda 10/26: no events. less discharge, no fever 10/27: scant drainage Home Meds Reported Medications Multivitamins* (Theragran*) 1 Tab Tab, 1 TAB PO DAILY, TAB 10/23/18 Calcium Carbonate/Vitamin D3 (Calcium + Vitamin D Tablet) 1 Each Tablet, 1 EACH PO DAILY, TAB 10/23/18 Ascorbic Acid* (Vitamin C*) 500 Mg Capsule.sa, 500 MG PO DAILY, CAP 10/23/18 Primary Care Provider Not On Staff Doctor Time spent on discharge: > 30 minutes Pending Labs Laboratory Tests Test 10/27/18 04:25 White Blood Count 6.0 10^3/ul (4.8-10.8) Red Blood Count 3.35 10^6/ul (4.20-5.40) Hemoglobin 10.3 g/dl (12.0-16.0) Hematocrit 30.5 % (37.0-47.0) Mean Corpuscular Volume 91.0 fl (82.0-101.0) Mean Corpuscular Hemoglobin 30.7 pg (29.0-33.0) Mean Corpuscular Hemoglobin Concent 33.8 g/dl (32.0-37.0) Red Cell Distribution Width 11.9 % (11.5-14.5) Platelet Count 338 10^3/UL (140-415) Mean Platelet Volume 9.0 fl (7.4-10.4) Immature Granulocytes % 0.300 % (0.001-0.429) Neutrophils % 56.1 % (39.0-77.0) Lymphocytes % 21.5 % (15.0-51.0) Monocytes % 7.7 % (0.0-11.0) Eosinophils % 13.9 % (0.0-7.0) Basophils % 0.5 % (0.0-2.0) Nucleated Red Blood Cells % 0.0 /100WBC (0.0-0.0) Immature Granulocytes # 0.020 10^3/ul (0.0-0.031) Neutrophils # 3.3 10^3/ul (1.6-7.5) Lymphocytes # 1.3 10^3/ul (0.8-2.9) Monocytes # 0.5 10^3/ul (0.3-0.9) Eosinophils # 0.8 10^3/ul (0.0-0.5) Basophils # 0.0 10^3/ul (0.0-0.1) Nucleated Red Blood Cells # 0.0 10^3/ul (0.0-0.0) Sodium Level 140 mmol/L (135-144) Potassium Level 3.7 mmol/L (3.5-5.1) Chloride Level 105 mmol/L (97-110) Carbon Dioxide Level 28 mmol/L (21-31) Anion Gap 7 (5-13) Blood Urea Nitrogen 6 mg/dl (7-20) Creatinine 0.56 mg/dl (0.44-1.00) Est Glomerular Filtrat Rate mL/min > 60 mL/min (>60) Glucose Level 87 mg/dl (70-220) Calcium Level 9.1 mg/dl (8.4-10.2) BILL HADDAD MD Oct 27, 2018 15:23
--- NOTE | 2018-10-27 15:23 | PDOCDIS ---
Discharge Instructions CONDITION [id number] Patient Condition: [id number] Good HOME CARE INSTRUCTIONS: [id number] Diet Instructions: [id number] Regular ACTIVITY: [id number] Activity Restrictions: [id number] Slowly Increase Activity Avoid heavy lifting FOLLOW UP/APPOINTMENTS Follow-up Plan Dr Stephenson & Dr Elizabeth 1wk BILL HADDAD MD Oct 27, 2018 15:23
[2018-10-27] MEDS ORDERED: CEPH500C PO (15:25)
[2018-10-27] MEDS ORDERED: ACET325T33 PO (15:25)
--- NOTE | 2018-10-27 17:01 | PN ---
DATE: 10/27/2018 SUBJECTIVE: No complaint, feels much better. OBJECTIVE: GENERAL: Awake, alert, oriented x3. VITAL SIGNS: Stable, no fever. HEART: Regular. LUNGS: Clear. ABDOMEN: Soft. BREASTS: There is no more cellulitis visible. Also, no more tenderness on pressure mildly over the incision and in the vicinity of the incision in the left breast. Fairly good. Nurses report the valente unt of drainage from the left breast has been scanty in the past 24 hours and is slightly yellowish. PLAN: According to the infectious disease home care consultant, Dr. Elizabeth, the patient can be discharged with antibiotic Keflex 500 mg p.o. q.6 hours for 7 days, to be followed by infectious disease, and also, the patient should call Dr. Stephenson' office on Monday and make an appointment for followup on Monday o r Monday. Dictated By: TOÑO LONG MD PS/NTS Conf#: [id number] DID#: [id number] CC: ALEX SANTIAGO MD;*EndCC*
== END 2018-10-27 17:15 | disposition home or self-care (01) | DRG 863 ==
LOC: E/R 23:12 → MS1 10-23 01:55 → EDBEDREQ 10-23 02:41 → CANRESERV 10-23 03:46
PROVIDERS: ADMIT Internal Medicine; ATTEND Internal Medicine
DX: T81.49XA Infection following a procedure, other surgical site, initial encounter (principal); N61.1 Abscess of the breast and nipple; D64.9 Anemia, unspecified; B95.61 Methicillin susceptible Staphylococcus aureus infection as the cause of diseases classified elsewhere; L76.82 Other postprocedural complications of skin and subcutaneous tissue; Z85.3 Personal history of malignant neoplasm of breast
CPT/HCPCS: 36415; 71045; 76641; 80048; 80053; 80202; 81001; 81025; 83605; 83735; 84145; 84443; 84484; 85025; 85610; 85651; 85730; 86140; 87040; 87070; 87086; 93005; 96374; 96375; J0690; J1650; J2270; J2405; J2543; J3370; J7030; J7050

== ENCOUNTER 2018-11-16 08:42 | Observation (INO) | payer OTHER ==
[2018-11-15 13:50] VITALS: BMI 28.8
[2018-11-16] VITALS (24 sets, daily range): BP systolic 108–174; BP diastolic 62–80; PULSE 80–96; RESP 10–21; Ht 160 cm; Wt 70.5 kg
[~2018-11-16] VITALS: Ht 160 cm; Wt 70.5 kg
[~2018-11-16 08:42] MED LIST: ACET325T33 PO; ASCO500C7 PO; CALC-134 PO; CEFAZOLIN 2 GM/50 ML (PMX) 50 ML IVPB SCH; CEPH500C PO; MULTI PO; SOD CHLORIDE 0.9% 1,000 ML IV ONE
[2018-11-16] MEDS ORDERED: IBUP-1542 PO (09:42)
[2018-11-16] MEDS ORDERED: BEN50 PO (09:42)
--- NOTE | 2018-11-16 12:08 | PREAC ---
Date/Time of Note Date/Time of Note DATE: 11/16/18 TIME: 12:07 Anesthesia Eval and Record Evaluation Time Pre-Procedure Interview DATE: 11/16/18 TIME: 12:07 Age 48 Sex female NPO: 8 hrs Preoperative diagnosis left breast cancer Planned procedure left breast re-excision partial mastectomy and sentinel lymph node biopsy Past Medical History Past Medical History: None Surgery & Anesthesia Issues No known issue Meds Anticoagulation: No Beta Leida within 24 hr: No Reason Beta Leida not given: Pt. not on B-Leida Reported Medications Diphenhydramine Hcl* (Benadryl*) 50 Mg Cap, 50 MG PO Q6 PRN for ITCHING, CAP 11/16/18 Ibuprofen* (Motrin*) 600 Mg Tab, 600 MG PO Q8H PRN for PAIN, TAB 11/16/18 Discontinued Reported Medications Multivitamins* (Theragran*) 1 Tab Tab, 1 TAB PO DAILY, TAB 10/23/18 Calcium Carbonate/Vitamin D3 (Calcium + Vitamin D Tablet) 1 Each Tablet, 1 EACH PO DAILY, TAB 10/23/18 Ascorbic Acid* (Vitamin C*) 500 Mg Capsule.sa, 500 MG PO DAILY, CAP 10/23/18 Discontinued Scripts Cephalexin* (Cephalexin*) 500 Mg Capsule, 500 MG PO Q6 for 7 Days, #30 CAP Prov:BILL HADDAD MD 10/27/18 Acetaminophen* (Tylenol*) 325 Mg Tablet, 650 MG PO Q6H PRN for .PAIN 1-3 OR TEMP for 1 Day, TAB Prov:BILL HADDAD MD 10/27/18 Current Medications Cefazolin Sodium/ Dextrose 50 ml @ 100 mls/hr PRE-OP IVPB ; Start 11/16/18 at 06:00; Stop 11/16/18 at 18:00 Sodium Chloride 1,000 ml @ 75 mls/hr [id number] ONCE IV ; Start 11/16/18 at 06:00; Stop 11/16/18 at 19:19 Meds reviewed: Yes Allergies Coded Allergies: No Known Drug Allergies (Verified Allergy, Unknown, 11/15/18) Allergies Reviewed: Yes Labs/Studies Labs Reviewed: Reviewed by anesthesiologist test: Negative Pre-procedure Exam Last vitals Vital Signs Date Temp Pulse Resp B/P (MAP) Pulse Ox O2 O2 Flow FiO2 Time Delivery Rate 11/16/18 97.9 87 16 111/66 98 10:15 (81) Airway: Adequate mouth opening, Adequate thyromental dist Mallampati: Mallampati II Teeth: Normal Lung: Normal Heart: Normal ASA Physical Status ASA physical status: 2 Emergency: None Planned Anesthetic General/MAC: LMA Planned Pain Management Parenteral pain med Pre-operative Attestations Prior to commencing anesthesia and surgery, the patient was re-evaluated, there was verification of: *The patient's identity *The results of appropriate recent lab work and preoperative vital signs *The above evaluation not changing prior to induction *Anesthetic plan, risk benefits, alternative and complications discussed with patient/family; questions answered; patient/family understands, accepts and wishes to proceed. GEMA GORDON MD Nov 16, 2018 12:08
[2018-11-16] MEDS ORDERED: ISOSULFAN BLUE 1% 5 ML INJ SC ONE (12:09)
[2018-11-16] MEDS ORDERED: MIDAZOLAM 1 MG/ML 2 ML INJ ONE (12:18)
[2018-11-16] MEDS ORDERED: FENTAnyl 50 MCG/ML VIAL ONE ×2 (12:18→13:58)
[2018-11-16] MEDS ORDERED: hydrALAzine 20 MG INJ IV PRN (12:30)
[2018-11-16] MEDS ORDERED: MEPERIDINE 25 MG INJ IV PRN (12:30)
[2018-11-16] MEDS ORDERED: ONDANSETRON 4 MG INJ IV PRN ×2 (12:30→13:30)
[2018-11-16] MEDS ORDERED: OXYCODONE/ACETAMINOPHEN (5/325) TAB PO PRN (12:30)
[2018-11-16] MEDS ORDERED: HYDROmorphONE 1 MG/5 ML IV SYRINGE IV PRN ×3 (12:30)
[2018-11-16] MEDS ORDERED: DIPHENHYDRAMINE 50 MG INJ IV PRN (12:30)
[2018-11-16] MEDS ORDERED: EPHEDrine SULFATE 50 MG/5 ML SYG IV PRN (12:30)
[2018-11-16] MEDS ORDERED: LABETALOL HCL 20MG INJ IV PRN (12:30)
[2018-11-16] MEDS ORDERED: PROCHLORPERAZINE 10 MG INJ IV PRN (12:30)
[2018-11-16] MEDS ORDERED: FENTAnyl 50 MCG/ML VIAL IV PRN (12:30)
[2018-11-16] MEDS ORDERED: PROPOFOL 20 ML ONE (12:35)
[2018-11-16] MEDS ORDERED: LIDOCAINE 2% (SDV) 5 ML INJ ONE (12:35)
[2018-11-16] MEDS ORDERED: CEFAZOLIN 1 GM INJ ONE (12:35)
[2018-11-16] MEDS ORDERED: DEXAMETHASONE 4 MG/ML 5 ML INJ ONE (12:37)
[2018-11-16] MEDS ORDERED: FAMOTIDINE 20 MG INJ ONE (12:37)
[2018-11-16] MEDS ORDERED: ONDANSETRON 4 MG INJ ONE (12:37)
--- NOTE | 2018-11-16 13:17 | SIPON ---
Date/Time of Note Date/Time of Note DATE: 11/16/18 TIME: 13:15 Operative Report Preoperative Diagnosis Left breast cancer need for reexcision partial mastectomy and sentinel lymph node biopsy Postoperative Diagnosis Same Operation/Procedure Performed Left reexcision partial mastectomy and axillary dissection utilizing sentinel lymph node technique Surgeon see signature line patient care assistant Dr Farr Anesthesia: general Estimated blood loss: 0 - 10 ml's Transfusion Required none Specimen Left partial mastectomy specimen and sentinel lymph node with additional axillary nodes Grafts/Implants none Complications none CHOCO ARANDA MD Nov 16, 2018 13:17
[2018-11-16] MEDS ORDERED: ACETAMINOPHEN 1000MG/100ML IV 100 ML IVPB PRN (13:30)
--- NOTE | 2018-11-16 13:40 | OPR ---
DATE OF OPERATION: 11/16/2018 PREOPERATIVE DIAGNOSIS: Ductal carcinoma in situ, left breast with microinvasion, need for reexcisio n partial mastectomy and sentinel lymph node biopsy. POSTOPERATIVE DIAGNOSIS: Ductal carcinoma in situ, left breast with microinvasion, need for reexcisi on partial mastectomy and sentinel lymph node biopsy. PROCEDURES: Left reexcision partial mastectomy and axillary dissection utilizing sentinel lymph node technique. ANESTHESIA: General. ANESTHESIOLOGIST: Yudy Reyes MD SURGEON: Gunner Stephenson MD GRINDING WHEEL FACER: Yogesh Farr MD INDICATIONS FOR PROCEDURE: The patient is a 48-year-old female who underwent mammographic screening, was found to have highly suspicious area of microcalcifications. Core biopsy confirmed DCIS. She t hen underwent a needle-directed excisional biopsy which revealed DCIS with approximately 2 mm area of invasive cancer. The margins were inadequate. She was counseled as to the need for reexcision part ial mastectomy and sentinel lymph node biopsy. She consented and was scheduled for surgery. DESCRIPTION OF PROCEDURE: The patient was brought to the operating theater, placed under general ane sthesia. The left breast and axillary region was prepped and draped in usual sterile fashion. Appro ximately 3 mL of 1% Lymphazurin blue dye were then injected around the previous biopsy site. The tony ast was gently massaged for 12 minutes. At this point, a 3 to 4 cm incision was made in the left axi llary hairline. Subcutaneous tissue was dissected with cautery down through the clavipectoral fascia . A dye-stained lymphatic was identified, traced to a sentinel node. The sentinel node and 2 or 3 a dditional lymph nodes were then resected using the LigaSure device. Specimen was removed and sent fo r permanent pathologic analysis. The wound was irrigated. Minimal bleeding was controlled with caut saul. The skin was then reapproximated with a 4-0 Vicryl suture in subcuticular fashion. Attention w as then directed performing the reexcision partial mastectomy. The previous surgical incisional scar in the upper outer quadrant was reincised. Subcutaneous tissue was dissected down to the breast par enchyma until the previous biopsy cavity was entered. Several milliliters of straw-colored seroma fl uid were suction aspirated. A 360-degree dissection of the previous biopsy cavity then took placed u sing cautery. Specimen was removed, oriented and sent for permanent pathologic analysis. The wound was irrigated. Minimal bleeding was controlled with cautery and the skin was then reapproximated wit h 4-0 Vicryl sutures in deep dermal interrupted fashion, followed by final skin approximation with 5- 0 PDS sutures in subcuticular fashion. Dermabond was then applied to both incisions. The patient to lerated the procedure well. The estimated blood loss was 20 mL. There were no complications and the patient was transported in stable condition to the recovery room where circumferential compression d ressing was applied. Dictated By: GUNNER STEPHENSON MD TL/NTS Conf#: [id number] DID#: [id number] CC: ANA CLEMENTE MD;*End*
--- NOTE | 2018-11-16 14:14 | PAC ---
Date/Time of Note Date/Time of Note DATE: 11/16/18 TIME: 14:13 Post-Anesthesia Notes Post-Anesthesia Note Last documented vital signs Vital Signs Date Temp Pulse Resp B/P (MAP) Pulse Ox O2 O2 Flow FiO2 Time Delivery Rate 11/16/18 97.9 87 16 111/66 98 10:15 (81) Activity: WNL Respiratory function: WNL Cardiovascular function: WNL Mental status: Baseline Pain reasonably controlled: Yes Hydration appropriate: Yes Nausea/Vomiting absent: Yes Comments BP: 120/58 HR: 74 RR: 15 T: 98 SaO2: 100% GEMA GORDON MD Nov 16, 2018 14:14
[2018-11-16] MEDS: morphine 2 MG INJ IV PRN ×3 (17:59→22:48)
[2018-11-16] MEDS: D5W-0.45 NACL + KCL 20 MEQ 1,000 ML IV SCH ×2 (18:22→21:17)
[2018-11-17] MEDS ORDERED: HYDROCODONE/APAP (5/325) TAB PO PRN (00:30)
[2018-11-17 01:50] VITALS: BP 94/60; PULSE 70; RESP 18
[2018-11-17] MEDS: D5W-0.45 NACL + KCL 20 MEQ 1,000 ML IV SCH ×2 (02:15→10:51)
--- NOTE | 2018-11-17 03:07 | HP ---
DATE OF ADMISSION: 11/16/2018 CHIEF COMPLAINT AND HISTORY OF PRESENT ILLNESS: The patient is a 48-year-old female who underwent ma mmographic screening. The patient was found to have a suspicious area of microcalcification. The pa tient underwent core biopsy which confirmed ductal carcinoma in situ. The patient subsequently under went excisional biopsy which revealed ductal carcinoma in situ with approximately 2 mm area of invasi ve cancer. Margins are inadequate. The patient was therefore brought into hospital today and underw ent left reexcision partial mastectomy and axillary dissection. The patient has had significant post operative pain and is being admitted for further evaluation and management. The patient denies histo ry of headache, syncope. No history of cough, sore throat. No history of abdominal pain. No histor y of nausea. No history of resting leg pain. No history of paresthesias. No history of weakness in any extremity. No history of recent fever or chills. REVIEW OF SYSTEMS: Rest of the review of system is unremarkable. PAST MEDICAL HISTORY: As stated above. In addition, the patient has history of left breast infectio n back in 10/2018 which was treated with antibiotic. SOCIAL HISTORY: No smoking, no alcohol. FAMILY HISTORY: The patient's aunt has breast cancer. ALLERGIES: NONE. MEDICATIONS PRIOR TO ADMISSION: None. PHYSICAL EXAMINATION: GENERAL: Revealed the patient to be awake, alert, fairly oriented. VITAL SIGNS: Temperature 98.8, pulse 90, respirations 16, blood pressure 111/73, O2 sat 98% on room air. HEENT: No eye discharge or redness. Conjunctivae and lids are normal. Oropharynx is clear. NECK: Supple. No mass or thyromegaly. CHEST: Fairly clear. CARDIOVASCULAR: S1, S2 normal. No murmur. ABDOMEN: Soft, nondistended, nontender. EXTREMITIES: No leg edema. NEUROLOGIC: The patient is awake, alert, fairly oriented with no gross focal deficit. LABORATORY DATA: Recently WBC 6, hemoglobin 10.3, platelet 338. Sodium 140, potassium 3.7, BUN 6, c reatinine 0.5, glucose 87, calcium 9.1. TSH 3. IMPRESSION: Ductal carcinoma in situ, left breast with microinvasion. The patient underwent left re excision partial mastectomy and axillary dissection. PLAN: The patient will be admitted on medical floor. The patient will be started on clear liquid di et, which will be advanced as tolerated. The patient will also be given IV fluid. For pain, the pat ient will be given Tylenol, [place] and IV morphine. We will use SCD for DVT prophylaxis. If the diandra ent continues to do well and cleared by surgery, she will be discharged home tomorrow and we will con tinue to follow up with Dr. Stephenson as an outpatient. Dictated By: ANA CLEMENTE MD AB/NTS Conf#: [id number] DID#: [id number] CC: CHOCO STEPHENSON MD;*EndCC*
[2018-11-17 05:50] VITALS: BP 102/84; PULSE 75; RESP 18
[2018-11-17 07:27] VITALS: BP 95/63; PULSE 78; RESP 17
[2018-11-17] MEDS: morphine 2 MG INJ IV PRN (10:50)
[2018-11-17 11:30] VITALS: BP 125/75; PULSE 82; RESP 18
--- NOTE | 2018-11-17 11:48 | PN ---
Date/Time of Note Date/Time of Note DATE: 11/17/18 TIME: 11:47 Assessment/Plan VTE Prophylaxis Risk score (from Ns)>0 risk: 2 SCD applied (from Ns): Yes Pharmacological prophylaxis: LMWH Lines/Catheters IV Catheter Type (from Nrsg): Peripheral IV Assessment/Plan Hospital Course 1) breast cancer - s/p mastectomy Subjective 24 Hr Interval Summary Free Text/Dictation Patient complain of pain related to surgery Exam/Review of Systems Exam Vitals Vital Signs Date Temp Pulse Resp B/P (MAP) Pulse Ox O2 O2 Flow FiO2 Time Delivery Rate 11/17/18 98.2 82 18 125/75 100 Nasal 11:30 (92) Cannula 11/16/18 3.0 15:57 Intake and Output 11/16/18 11/16/18 11/17/18 1515:00 23:00 07:00 IntakeIntake Total 1300 ml 240 ml 1400 ml OutputOutput Total 15 ml 40 ml 20 ml BalanceBalance 1285 ml 200 ml 1380 ml Constitutional: well developed Head: normocephalic, atraumatic Neck: supple Respiratory: diminished breath sounds Cardiovascular: regular rate and rhythm Gastrointestinal: soft, non-tender Extremities: normal pulses Medications Medication Current Medications Ondansetron HCl (Zofran Inj) 4 mg Q6H PRN IV NAUSEA AND/OR VOMITING Last administered on 11/17/18at 10:47; Admin Dose 4 MG; Start 11/16/18 at 13:30 Potassium Chloride/Dextrose/ Sod Cl 1,000 ml @ 125 mls/hr Q8H IV Last administered on 11/17/18at 10:51; Admin Dose 125 MLS/HR; Start 11/16/18 at 13:17 Morphine Sulfate (morphine) 2 mg Q1H PRN IV PAIN Last administered on 11/17/18at 10:50; Admin Dose 2 MG; Start 11/16/18 at 13:30 Acetaminophen 100 ml @ 400 mls/hr Q6H PRN IVPB PAIN; Start 11/16/18 at 13:30; Stop 11/17/18 at 13:29 Acetaminophen/ Hydrocodone Bitart ([place] (5/325)) 1 tab Q4H PRN PO MODERATE PAIN LEVEL 4-6 Last administered on 11/17/18at 06:13; Admin Dose 1 TAB; Start 11/17/18 at 00:30 CECE BERNABE Nov 17, 2018 11:48
[2018-11-17 15:28] VITALS: BP 107/60; PULSE 80; RESP 17
--- NOTE | 2018-11-17 16:02 | PN ---
DATE: 11/17/2018 SUBJECTIVE: Postop day #1 status post left side reexcision partial mastectomy and axillary lymph nod e dissection, sentinel lobe technique. SUBJECTIVE: Apparently has had an episode which appears to be more anxiety, with some difficulty eloy thing and so patient was given some nasal oxygen a couple of hours ago and now she feels good and she was better even though she has been having nausea, but she had lunch. No vomiting. GENERAL: Alert, awake, oriented x3, in no acute distress. VITAL SIGNS: Temperature 98.2, heart rate 82, respiration 18, blood pressure 175/75, saturation 100% room air. LABORATORY DATA: No lab was done today. PHYSICAL EXAM: HEART: Regular. LUNGS: Clear. Dressing is intact. It is not too tight. The patient can move left upper extremity easily and raise it up above the head. [facility]os[facility] in the past 24 hours from time of operation to 7:00 in the morning 60 m L drainage accumulated in the [facility] drain. ASSESSMENT AND PLAN: The patient appears stable, most probably has had a slight episode of anxiety bu t now it is quite stable. The patient can be actually discharged home today. Prescription was writt en by myself for [place] and Keflex considering that the patient presented to the hospital and was admi tted after first operation with mild cellulitis. Therefore, I am giving her a prescription for Kefle x. Patient to call Dr. Stephenson' office on Monday and make an appointment for followup on Monday. Dictated By: TOÑO LONG MD PS/NTS Conf#: [id number] DID#: [id number] CC: CHOCO STEPHENSON MD; ANA CLEMENTE MD;*EndCC*
== END 2018-11-17 17:45 | disposition home or self-care (01) ==
LOC: SDS 08:42 → REC 13:17 → INTOOBSV 13:17 → 2NE 15:55
PROVIDERS: ADMIT Surgery Surgical Oncology; ATTEND Surgery Surgical Oncology
DX: N60.92 Unspecified benign mammary dysplasia of left breast (principal); Z85.3 Personal history of malignant neoplasm of breast
CPT/HCPCS: 19301; 38525; 88307; J0690; J1100; J1170; J2175; J2250; J2270; J2405; J3010; J3480; Z7500; Z7512; Z7610; 99217; G0378; Q9968

== ENCOUNTER 2019-05-06 06:46 | Day surgery (SDC) | payer OTHER ==
[~2019-05-06] VITALS: Ht 160 cm; Wt 74.4 kg
[2019-05-06] VITALS (12 sets, daily range): BP systolic 104–123; BP diastolic 60–77; PULSE 84–102; RESP 12–22; Ht 160 cm; Wt 74.4 kg
[~2019-05-06 06:46] MED LIST changes: -ACET325T33 PO; -ASCO500C7 PO; +BEN50 PO; -CALC-134 PO; -CEFAZOLIN 2 GM/50 ML (PMX) 50 ML IVPB SCH; -CEPH500C PO; +IBUP-1542 PO; -MULTI PO; -SOD CHLORIDE 0.9% 1,000 ML IV ONE
[2019-05-06] MEDS ORDERED: SOD CHLORIDE 0.9% 1,000 ML IV SCH (10:00)
[2019-05-06] MEDS ORDERED: SEVOFLURANE 15 MIN ONE (11:00)
[2019-05-06] MEDS ORDERED: MEPERIDINE 100 MG INJ ONE (11:04)
[2019-05-06] MEDS ORDERED: PROPOFOL 20 ML ONE (11:04)
[2019-05-06] MEDS ORDERED: CEFAZOLIN 1 GM INJ ONE (11:04)
[2019-05-06] MEDS ORDERED: LIDOCAINE 2% (SDV) 5 ML INJ ONE (11:04)
[2019-05-06] MEDS ORDERED: ONDANSETRON 4 MG INJ ONE (11:04)
[2019-05-06] MEDS ORDERED: METOCLOPRAMIDE 10 MG INJ ONE (11:04)
[2019-05-06] MEDS ORDERED: ISOSULFAN BLUE 1% 5 ML INJ SC ONE (11:06)
[2019-05-06] MEDS ORDERED: EPHEDrine 25 MG/5 ML SYG ONE (11:58)
[2019-05-06] MEDS ORDERED: ONDANSETRON 4 MG INJ IV PRN (12:30)
[2019-05-06] MEDS ORDERED: OXYCODONE/ACETAMINOPHEN (5/325) TAB PO PRN ×2 (12:30)
[2019-05-06] MEDS ORDERED: METOCLOPRAMIDE 10 MG INJ IV PRN (12:30)
[2019-05-06] MEDS ORDERED: FENTAnyl 50 MCG/ML VIAL IV PRN ×3 (12:30)
[2019-05-06] MEDS ORDERED: DIPHENHYDRAMINE 50 MG INJ IV PRN (12:30)
[2019-05-06] MEDS ORDERED: MEPERIDINE 25 MG INJ IV PRN (12:30)
[2019-05-06] MEDS ORDERED: MIDAZOLAM 1 MG/ML 2 ML INJ IV PRN (12:30)
[2019-05-06] MEDS ORDERED: HYDROmorphONE 1 MG/5 ML IV SYRINGE IV PRN ×3 (12:30)
[2019-05-06] MEDS ORDERED: HYDROCODONE/APAP (7.5/325) TAB PO PRN (13:00)
== END 2019-05-06 15:00 | disposition home or self-care (01) ==
LOC: SDS 06:46
PROVIDERS: ATTEND Surgery Surgical Oncology
DX: N60.22 Fibroadenosis of left breast (principal); Z85.3 Personal history of malignant neoplasm of breast
CPT/HCPCS: 88307; J0690; J1170; J2175; J2405; J2765; J3010; Q9968